=== PATIENT | male | born 1985 | race African-American/Black ===

== ENCOUNTER 2017-04-09 13:31 | Emergency (ER) | payer MEDICAID ==
[~2017-04-09] VITALS: Ht 180.3 cm; Wt 67.6 kg
[2017-04-09 13:34] VITALS: Ht 180.3 cm; Wt 67.6 kg
[2017-04-09 15:23] VITALS: BP 135/92
== END 2017-04-09 15:23 | disposition home or self-care (01) ==
LOC: ED 13:31
DX: S92.331A Displaced fracture of third metatarsal bone, right foot, initial encounter for closed fracture (principal); X50.1XXA Overexertion from prolonged static or awkward postures, initial encounter; Y93.89 Activity, other specified; Y99.8 Other external cause status; Y92.89 Other specified places as the place of occurrence of the external cause
CPT/HCPCS: J1885